=== PATIENT | female | born 1975 | race Caucasian/White ===

== ENCOUNTER 2018-10-27 08:21 | Day surgery (SDC) | payer SELFPAY ==
[2018-10-26 12:57] VITALS: BMI 20.5
[2018-10-27] MEDS ORDERED: IBUPROFEN 800 MG/8 ML IJ IVPB PRN (10:39)
[2018-10-27] MEDS ORDERED: ONDANSETRON 4 MG/2 ML VIAL IVPUSH PRN (10:39)
[2018-10-27] MEDS ORDERED: ACETAMINOPHEN 500 MG TABLET (FP) PO PRN (10:39)
[2018-10-27] MEDS ORDERED: LACTATED RINGERS SOLUTION 1,000 ML IV SCH (10:45)
[2018-10-27] MEDS ORDERED: LIDOCAINE HCL/PF 2% SDV 5ML VIAL ONE (11:01)
[2018-10-27] MEDS ORDERED: MIDAZOLAM HCL 2 MG/2 ML SINGLE DOSE VIAL ONE (11:02)
[2018-10-27] MEDS ORDERED: PROPOFOL 20 ML ONE (11:02)
[2018-10-27] MEDS ORDERED: BUPIVACAINE HCL/PF 0.25% (2.5MG/ML) 10 ML VIAL ONE ×2 (11:04→12:01)
[2018-10-27] MEDS ORDERED: LIDOCAINE HCL 1%, 10 MG/ML (20ML VIAL) ONE (11:04)
[2018-10-27] MEDS ORDERED: ceFAZolin SODIUM 1 GM VIAL ONE (11:18)
[2018-10-27] MEDS ORDERED: ceFAZolin SODIUM 1 GM VIAL IVPB ONE (11:19)
[2018-10-27] MEDS ORDERED: LIDOCAINE 1%-EPI 1:100,000 30 ML MDV IJ ONE (11:20)
[2018-10-27] MEDS ORDERED: DEXAMETHASONE SOD PHOSPHATE 4 MG/1 ML VIAL ONE (11:55)
[2018-10-27] MEDS ORDERED: BUPIVACAINE HCL/PF 0.25% (2.5MG/ML) 10 ML VIAL IM ONE (12:03)
--- NOTE | 2018-10-27 12:32 | OP ---
Operative Note - Note: Operative Date: 10/27/18 Pre-Operative Diagnosis: Hypomastia Operation: Bilateral Breast Augmentation Implants: Sientra 230 cc mod plus Post-Operative Diagnosis: Same as Pre-op Surgeon: Rafael Marie Anesthesia: General Estimated Blood Loss (mls): 10 Operative Report Dictated: Yes
[2018-10-27 12:49] VITALS: TEMP 98.2
[2018-10-27] MEDS ORDERED: ACETAMINOPHEN INJECTION 100 ML IVPB ONE (13:24)
[2018-10-27] MEDS ORDERED: ACETAMINOPHEN 1000 MG/100 ML VIAL (NON FORMULARY) IVPB ONE (13:28)
[2018-10-27 16:04] VITALS: BP 122/61; PULSE 81
--- NOTE | 2018-10-29 09:42 | OP ---
DATE OF OPERATION: 10/27/2018 SURGEON: Rodolfo Marie MD PREOPERATIVE DIAGNOSIS: Bilateral hypomastia. POSTOPERATIVE DIAGNOSIS: Bilateral hypomastia. OPERATIVE PROCEDURE: Bilateral breast augmentation with silicone gel implants. OPERATIVE INDICATION: The patient is a 43-year-old female who desired breast augmentation. The risks and benefits of surgical versus nonsurgical alternatives as well as the material complications were described on multiple occasions preoperatively, including today in the holding area, where she was marked in the standing position for outline of the procedure, discussion of the incisions, and confirmation of the size. OPERATIVE PROCEDURE IN DETAIL: The patient was taken to the operating room and, after induction of general anesthesia in supine position, both arms were extended and padded, Venodyne boots were placed, and attention was turned to the chest wall. ChloraPrep solution was prepped over the entire chest wall in the usual fashion for breast surgery and then placement of sterile drapes in the usual fashion. After timeout, the incision was planned in the breast at approximately 7 cm below the inframammary fold and 3 cm in length. At this point, this was injected with 1% local lidocaine anesthesia with 1:200,000 epinephrine and 0.25% Marcaine plain. After allowing topical anesthesia and hemostasis, an incision was made down through the inframammary incision, 3 cm in length, through the subcutaneous tissue, down to the underlying chest wall. Under optical magnification of 2.5 power, dissection was carried superiorly along the subcutaneous tissue until the pectoralis major muscle was encountered. Using the lighted retractor, a subpectoral dissection was carried out, raising the pectoralis muscle superiorly to the 2nd rib, medially to the sternal fibers, down to the inframammary fold, where the origin was divided using electrocautery, and out to the anterior axillary line. Hemostasis was meticulously obtained throughout the procedure. Copious irrigation with triple antibiotic solution was carried out at this point. An implant, which was chosen, which was confirmed preoperatively with the patient, was a Sientra smooth, round, moderate implant of 105 moderate plus implant. This was placed into the right breast pocket using the Chinchilla funnel in a sterile, no-touch technique. Once this was in place, 10 mL of Marcaine solution was injected into the pocket and closure was accomplished using 3-0 Biosyn suture on the deep fascia of the breast, 3-0 in a deep dermal fashion, and subcuticular suture with 3-0 Biosyn suture. The exact same procedure was carried out symmetrically on the opposite breast, also placing the same, identical implant and showing good contour in the sitting position. This was checked twice and then both wounds were closed. A dry sterile dressing with Dermabond, Steri-Strips, and a Surgi-Bra was placed. She was awakened, transferred to the recovery room in satisfactory condition and tolerated procedure well. RODOLFO MARIE M.D. [id number]
== END 2018-10-27 16:00 | disposition home or self-care (01) ==
LOC: JASU-SURG 08:21
PROVIDERS: ATTEND Plastic Surgery
CPT/HCPCS: 84703; 94760; J0131